=== PATIENT | male | born 1995 | race Caucasian/White ===

== ENCOUNTER 2016-04-27 14:01 | Inpatient (IN) | payer BC, OTHER ==
[~2016-04-27] VITALS: Ht 167.6 cm; Wt 72.0 kg
[2016-04-27] MEDS ORDERED: SODIUM CHLORIDE 0.9% 1000ML 1,000 ML IV STA ×2 (15:34→16:48)
[2016-04-27] MEDS ORDERED: ONDANSETRON INJ 2 MG/ML 2 ML VIAL IV STA (15:34)
[2016-04-27] MEDS ORDERED: SODIUM CHLORIDE 0.9% 1000ML 1,000 ML IV ONE (15:34)
--- NOTE | 2016-04-27 15:37 | EMERGENCY ROOM VISIT NOTE ---
History Report prepared by Serenity: Miah Tripathi Under the Supervision of: Dr. Miah England M.D. First contact with patient: 15:27 Chief Complaint: VOMITING Stated Complaint: VOMITING Nursing Triage Summary: Cyclic vomiting syndrome. Vomiting since sunday night. Keeps small amount of liquids down. Better at night, wakes up and starts all over. Normally waits symptoms out but this is the longest its ever been. History of Present Illness The patient is a 20 year old male who presents to the Emergency Room with complaints of persistent vomiting beginning 4 days ago. He states he has cyclic vomiting syndrome and has had this for 5 years, but indicates this bout of vomiting is the worst he has had. He notes he usually relieves his symptoms with hot showers and drinking liquids, but he has no relief this time. He adds he has tried taking Zofran but with no relief of his symptoms. He has not eaten since the onset of his symptoms, and has had no bowel movements. He notes his esophagus is burning, and adds he may have had blood in his vomit last night. The patient reports his vomiting relieves his pain for 10-15 minutes, and will at time drink Gatorade to induce vomiting for pain relief. He has chest pain that he describes as burning, dark and light urine, and a headache. He does not currently take any medications. Source of History: patient, friend Onset: 5 days ago Position: other (global) Quality: other (vomiting) Timing: other (persistent) Associated Symptoms: + chest pain ("burning"), + headache, + nausea, + urinary symptoms (dark and light urine), No SOB Review of Systems See HPI for pertinent positives & negatives. A total of 10 systems reviewed and were otherwise negative. Past Medical & Surgical Medical Problems: (1) Acute kidney injury (2) boerhaave's syndrome (3) Cyclic vomiting syndrome (4) Cyclic vomiting syndrome (5) Gastroesophageal reflux disease Old medical records were reviewed. Nurse's notes were reviewed and I agree with. History of cyclic vomiting. He did have an episode several years ago in a small pneumomediastinum but normal esophagus at the time. Family History No pertinent family history stated. Social History Smoking Status: Current Some Day Smoker Alcohol Use: other Drug Use: other Marital Status: single Housing Status: other Occupation Status: student, [employer] student Current/Historical Medications Scheduled Ranitidine (Zantac), 150 MG PO DAILY Scheduled PRN Ondansetron Hcl (Zofran), 4 MG PO for Nausea Miscellaneous Medications Calcium Carbonate (Tums), 1-2 TAB PO Allergies Coded Allergies: Aspirin (Verified Allergy, Severe, lips swelling, 04/27/16) per patient Physical Exam Vital Signs Date Time Temp Pulse Resp B/P Pulse Ox O2 Delivery O2 Flow Rate FiO2 04/27/16 18:11 80 113/71 98 Room Air 04/27/16 16:55 90 20 112/90 98 Room Air 04/27/16 16:01 90 18 159/91 96 Room Air 04/27/16 14:03 37.2 104 18 147/91 98 Room Air Physical Exam General: Well developed well nourished in no acute distress, breathing comfortably on room air. Normal speech. Mildly ill-appearing but non-toxic. HEENT: Normal cephalic atraumatic. Pupils are equal round and reactive to light. Extraocular movements are intact. Oropharynx is pink with moist mucous membranes. No swelling of the mouth lips or tongue. Neck: Supple with a midline trachea. No meningeal signs or stiffness, no JVD or bruits. No Stridor. Chest: Clear to auscultation bilaterally. No wheezes or rhonchi. No increased work of breathing. Heart: regular rate and rhythm. Abdomen: Soft nontender, nondistended without rebound guarding or rigidity. Extremities: No cyanosis clubbing or edema. No calf tenderness or assymetry Spine/Back. Non tender to palpation. No CVA tenderness Skin: Good turgor without rashes. Neurologic exam: Cranial nerves two through 12 are intact. Motor and sensation are intact and symmetrical throughout. Medical Decision & Procedures ER Provider Diagnostic Interpretation: X-ray results as stated below per interpretation by me and the radiologist: SINGLE VIEW CHEST FINDINGS: 2 AP, portable, upright chest radiographs are compared to study dated 05/13/2012. The examination is degraded by portable technique and patient rotation. The cardiomediastinal silhouette is unremarkable. The lungs and pleural spaces are clear. No pneumothorax is seen. The bony thorax is grossly intact. IMPRESSION: No active disease in the chest. Electronically signed by: Juan Guy M.D. 04/27/2016 3:53 PM Dictated Date/Time: 04/27/2016 3:53 PM Laboratory Results Test 04/27/16 15:56 Magnesium Level 2.8 mg/dl (1.8-2.4) Total Bilirubin 1.5 mg/dl (0.2-1) Direct Bilirubin 0.2 mg/dl (0-0.2) Aspartate Amino Transf (AST/SGOT) 18 U/L (15-37) Alanine Aminotransferase (ALT/SGPT) 36 U/L (12-78) Alkaline Phosphatase 66 U/L (45-117) Total Protein 10.0 gm/dl (6.4-8.2) Albumin 5.5 gm/dl (3.4-5.0) Lipase 96 U/L (73-393) Laboratory studies as stated above per my review. Medications Administered Medications (Trade) Dose Ordered Sig/Donovan Route Start Time Stop Time Status Last Admin Dose Admin Sodium Chloride 1,000 ml @ 999 mls/hr Q1H1M STAT IV 04/27/16 15:34 04/27/16 16:34 DC 04/27/16 15:58 999 MLS/HR Sodium Chloride (Nss 1000ml) 1,000 ml @ 200 mls/hr Q5H ONCE IV 04/27/16 15:34 04/27/16 20:33 DC 04/27/16 15:59 200 MLS/HR Ondansetron HCl (Zofran Inj) 4 mg NOW STAT IV 04/27/16 15:34 04/27/16 15:37 DC 04/27/16 15:57 4 MG Hyoscyamine Sulfate 0.125 mg 0.125 mg NOW STAT PO 04/27/16 16:48 04/27/16 16:49 DC 04/27/16 16:53 0.125 MG Sodium Chloride (Nss 1000ml) 1,000 ml @ 999 mls/hr Q1H1M STAT IV 04/27/16 16:48 04/27/16 17:48 DC 04/27/16 16:54 999 MLS/HR ED Course 1529: Past medical records reviewed. The patient was evaluated in room C2B, and a complete history and physical examination were performed. 1534: Ordered Zofran Inj 4 mg IV, NSS 1,000 ml @ 200 mls/hr IV, and NSS 1,000 ml @ 999 mls/hr IV. 1648: Ordered NSS 1,000 ml @ 999 mls/hr IV, and Levsin Tab 0.125 mg PO. 1700: I reassessed the patient, they are getting more fluids. 181: I reassessed the patient; they are feeling better. 181: I discussed the patient's case with ANA Nielson. They will further evaluate and manage the patient. 1820: Upon reevaluation, the patient is hemodynamically stable. I discussed the results and treatment plan with the patient. He verbalized agreement of the treatment plan. The patient will be evaluated for further management. Medical Decision Differentials include cyclic vomiting, dehydration, GERD, infection, esophageal abnormality, and electrolyte or metabolic abnormality. This patient comes in as described above he's been vomiting for several days his history cyclic vomiting. IV access was established and he was given 1 IV normal saline bolus and 200 mL an hour of IV normal saline. He was given Zofran 4 mg IV. Chest x-ray multiple blood testing was obtained. He was reassessed frequently. He also did receive sublingual Levsin as he requested this. He received a second normal saline 1 L bolus here as well. His BUN and creatinine are elevated compared to baseline with a creatinine 1.6. His potassium is also low at 2.8. He does not feel that he could tolerate oral potassium. His abdomen remains nontender without peritonitis. He is not anemic. His labs definitely support dehydration. I think that he seems to be doing significantly better but I think hydrated him overnight and given him some potassium in his IV fluids is warranted. I did consult the [facility] hospitalist and they saw him in the ER and will observe him tonight for further hydration. Consults Time Called: 1811 Consulting Physician: Dr. Ghanshyam PEREZ Returned Call: 1815 I discussed the patient's case with ANA Nielson. They will further evaluate and manage the patient. Impression Primary Impression: Dehydration Additional Impressions: Hypokalemia Cyclical vomiting Scribe Attestation The scribe's documentation has been prepared under my direction and personally reviewed by me in its entirety. I confirm that the note above accurately reflects all work, treatment, procedures, and medical decision making performed by me. Departure Information Dispostion Being Evaluated By Hospitalist Referrals No Doctor, Assigned (PCP) Patient Instructions My [facility] Problem Qualifiers
[2016-04-27] MEDS ORDERED: ONDA4TAB46 PO (15:42)
[2016-04-27] MEDS ORDERED: ZNTT/150 PO (15:42)
[2016-04-27] MEDS ORDERED: CALC500C3 PO (15:42)
--- NOTE | 2016-04-27 15:55 | DIAGNOSTIC IMAGING REPORT ---
SINGLE VIEW CHEST CLINICAL HISTORY: Atypical chest pain. FINDINGS: 2 AP, portable, upright chest radiographs are compared to study dated 05/13/2012. The examination is degraded by portable technique and patient rotation. The cardiomediastinal silhouette is unremarkable. The lungs and pleural spaces are clear. No pneumothorax is seen. The bony thorax is grossly intact. IMPRESSION: No active disease in the chest. Electronically signed by: Juan Guy M.D. 04/27/2016 3:53 PM Dictated Date/Time: 04/27/2016 3:53 PM
[2016-04-27 16:02] LABS: COMPLETE YES; EOS % 0.2 %; HEMATOCRIT 44.4 % (42-52); IG% 0.3 %; LYMPH % 13.9 %; LYMPH ABS # 1.57 K/uL (1.2-3.4); MEAN CELL VOLUME 80.3 fL (80-100); MEAN CORPUSCULAR HEMOGLOBIN 30.2 pg (25-34); MEAN CORPUSCULAR HGB CONC 37.6 g/dl (32-36); MEAN PLATELET VOLUME 9.3 fL (7.4-10.4); MONO % 13.2 %; NEUT % 72.4 %; PLATELET COUNT 355 K/uL (130-400); RED BLOOD COUNT 5.53 M/uL (4.7-6.1); WHITE BLOOD COUNT 11.28 K/uL (4.8-10.8)
[2016-04-27 16:23] LABS: BUN/CREATININE RATIO 18.9 (10-20); CALCIUM 10.5 mg/dl (8.5-10.1); CREATININE 1.6 mg/dl (0.60-1.40); POTASSIUM 2.8 mmol/L (3.5-5.1)
[2016-04-27] MEDS ORDERED: HYOSCYAMINE SULFATE 0.125 MG SL TAB PO STA (16:48)
[2016-04-27] MEDS ORDERED: ACETAMINOPHEN 325 MG TAB PO PRN (18:45)
[2016-04-27] MEDS ORDERED: POTASSIUM CHLORIDE 10 MEQ TABCR PO STA ×2 (19:43→19:55)
[2016-04-27 19:45] VITALS: BP 164/92; PULSE 70; TEMP 37.1; O2SAT 99
--- NOTE | 2016-04-27 20:07 | History and Physical ---
History & Physical Date & Time of Service: Apr 27, 2016 at 19:56 Chief Complaint: Vomiting Primary Care Physician: No Doctor, Assigned History of Present Illness Source: patient Pt is a 20 yo male who presents to ER with persistent vomiting x 5 days. Pt denies any fevers or chills, abd pain, urinary sx, diarrhea or sick contacts. Pt has a hx of cyclic vomiting syndrome and has seen GI in the past with multiple EGDs which were unremarkable. Pt states when his episodes have occurred in the past they would usually last for 1 day only. He indicates this bout of vomiting is the worst he has had. He adds he has tried taking Zofran but with no relief of his symptoms. He has not eaten since the onset of his symptoms, and has had no bowel movements. Past Medical/Surgical History Medical Problems: (1) boerhaave's syndrome Status: Chronic (2) Gastroesophageal reflux disease Status: Chronic Social History Smoking Status: Current Some Day Smoker Drug Use: other Marital Status: single Housing status: lives with friends Occupational Status: student, [employer] student Immunizations History of Influenza Vaccine: Unknown History of Tetanus Vaccine?: utd History of Pneumococcal: No History of Hepatitis B Vaccine: Yes Allergies Coded Allergies: Aspirin (Verified Allergy, Severe, lips swelling, 04/27/16) per patient Home Medications Scheduled Ranitidine (Zantac), 150 MG PO DAILY Scheduled PRN Ondansetron Hcl (Zofran), 4 MG PO for Nausea Miscellaneous Medications Calcium Carbonate (Tums), 1-2 TAB PO Review of Systems Constitutional: No chills, No fever Respiratory: No cough, No sputum Abdomen: + nausea, + vomiting Musculoskeletal: No joint pain, No muscle pain Genitourinary - Male: No dysuria, No hematuria, No urinary frequency Neurologic: No paralysis, No weakness Endocrine: No excessive thirst, No fatigue Physical Exam Vital Signs Date Time Temp Pulse Resp B/P Pulse Ox O2 Delivery O2 Flow Rate FiO2 04/27/16 19:38 73 16 120/66 97 Room Air 04/27/16 18:11 80 113/71 98 Room Air 04/27/16 16:55 90 20 112/90 98 Room Air 04/27/16 16:01 90 18 159/91 96 Room Air 04/27/16 14:03 37.2 104 18 147/91 98 Room Air General Appearance: WD/WN, no apparent distress Neck: supple, no adenopathy Respiratory/Chest: chest non-tender, lungs clear, normal breath sounds Cardiovascular: regular rate, rhythm, no edema, no gallop Abdomen/GI: non tender, soft Neurologic/Psych: alert, normal mood/affect, oriented x 3 Diagnostics Laboratory Results Results Past 24 Hours Test 04/27/16 15:56 Range/Units White Blood Count 11.28 4.8-10.8 K/uL Red Blood Count 5.53 4.7-6.1 M/uL Hemoglobin 16.7 14.0-18.0 g/dL Hematocrit 44.4 42-52 % Mean Corpuscular Volume 80.3 80-100 fL Mean Corpuscular Hemoglobin 30.2 25-34 pg Mean Corpuscular Hemoglobin Concent 37.6 32-36 g/dl Platelet Count 355 130-400 K/uL Mean Platelet Volume 9.3 7.4-10.4 fL Neutrophils (%) (Auto) 72.4 % Lymphocytes (%) (Auto) 13.9 % Monocytes (%) (Auto) 13.2 % Eosinophils (%) (Auto) 0.2 % Basophils (%) (Auto) 0.0 % Neutrophils # (Auto) 8.17 1.4-6.5 K/uL Lymphocytes # (Auto) 1.57 1.2-3.4 K/uL Monocytes # (Auto) 1.49 0.11-0.59 K/uL Eosinophils # (Auto) 0.02 0-0.5 K/uL Basophils # (Auto) 0.00 0-0.2 K/uL RDW Standard Deviation 34.7 36.4-46.3 fL RDW Coefficient of Variation 11.8 11.5-14.5 % Immature Granulocyte % (Auto) 0.3 % Immature Granulocyte # (Auto) 0.03 0.00-0.02 K/uL Sodium Level 135 136-145 mmol/L Potassium Level 2.8 3.5-5.1 mmol/L Chloride Level 90 98-107 mmol/L Carbon Dioxide Level 31 21-32 mmol/L Anion Gap 14.0 3-11 mmol/L Blood Urea Nitrogen 30 7-18 mg/dl Creatinine 1.60 0.60-1.40 mg/dl Est Creatinine Clear Calc Drug Dose 65.3 ml/min Estimated GFR () 69.8 Estimated GFR (Non- 60.3 BUN/Creatinine Ratio 18.9 10-20 Random Glucose 125 70-99 mg/dl Calcium Level 10.5 8.5-10.1 mg/dl Total Bilirubin 1.5 0.2-1 mg/dl Direct Bilirubin 0.2 0-0.2 mg/dl Aspartate Amino Transf (AST/SGOT) 18 15-37 U/L Alanine Aminotransferase (ALT/SGPT) 36 12-78 U/L Alkaline Phosphatase 66 45-117 U/L Total Protein 10.0 6.4-8.2 gm/dl Albumin 5.5 3.4-5.0 gm/dl Lipase 96 73-393 U/L Impression Assessment and Plan Pt is a 20 yo male with hx of cyclic vomiting disorder who presents with intractable N/V x 5 days Intractable N/V likely secondary to cyclic vomiting disorder. Pt states some relief at this time and reports his sx are more subdued in ER. Cont IVF and zofran at this time. No need for CT abd/pelvis or GI consultation unless worsening sx. Hypokalemia likely secondary to N/V. Replace PRN NAWAF likely secondary to N/V. Cr 1.6 upon admission. Cont IVF GERD cont protonix VTE Prophylaxis VTE Risk Assessment Done? Y/N: Yes Risk Level: Moderate
[2016-04-27] MEDS ORDERED: IV FLUIDS COMPLETED PRN (21:00)
[2016-04-27] MEDS: SODIUM CHLORIDE 0.9% 1000ML 1,000 ML IV SCH (21:06)
[2016-04-27] MEDS: POTASSIUM CHLR 10 MEQ / WTR 10 MEQ in PREMIXED WATER 100 ML IV SCH (21:07)
[2016-04-27 21:41] VITALS: Ht 167.6 cm; Wt 72.0 kg
[2016-04-27 22:28] LABS: URINE APPEARANCE CLEAR (CLEAR); URINE BILIRUBIN NEG (NEG); URINE COLOR YELLOW; URINE NITRITE NEG (NEG); URINE PH 7.5 (4.5-7.5); URINE SPECIFIC GRAVITY 1.028 (1.000-1.030); UROBILINOGEN NEG (NEG)
[2016-04-27 22:41] LABS: MANUAL MICROSCOPIC REQUIRED? NO; REVIEW REQ? YES; SULFASALICYLIC ACID NEG (NEG)
[2016-04-27 22:43] LABS: URINE MUCUS PRESENT (NONE PRSENT)
[2016-04-27 22:50] LABS: URINE EPITHELIAL CELL AUTO 0-5 /lpf (0-5)
[2016-04-27 22:53] VITALS: BP 113/67; PULSE 57; TEMP 37.6; O2SAT 99
[2016-04-28] MEDS: ONDANSETRON INJ 2 MG/ML 2 ML VIAL IV PRN ×2 (00:32→06:41)
[2016-04-28] MEDS: POTASSIUM CHLR 10 MEQ / WTR 10 MEQ in PREMIXED WATER 100 ML IV SCH ×3 (00:32→03:00)
[2016-04-28] MEDS ORDERED: CALCIUM CARBONATE 500 MG CHEWABLE PO PRN (01:30)
[2016-04-28 02:35] VITALS: O2SAT 99
[2016-04-28 06:20] LABS: BASO % 0.1 %; BASO ABS # 0.01 K/uL (0-0.2); COMPLETE YES; EOS % 0.9 %; HEMATOCRIT 35.4 % (42-52); IG% 0.1 %; LYMPH % 37.6 %; LYMPH ABS # 3.53 K/uL (1.2-3.4); MEAN CELL VOLUME 84.7 fL (80-100); MEAN CORPUSCULAR HEMOGLOBIN 29.4 pg (25-34); MEAN CORPUSCULAR HGB CONC 34.7 g/dl (32-36); MEAN PLATELET VOLUME 9.4 fL (7.4-10.4); MONO % 13.2 %; NEUT % 48.1 %; PLATELET COUNT 232 K/uL (130-400); RED BLOOD COUNT 4.18 M/uL (4.7-6.1); WHITE BLOOD COUNT 9.39 K/uL (4.8-10.8)
[2016-04-28 06:26] LABS: BUN/CREATININE RATIO 15.5 (10-20); CALCIUM 8.5 mg/dl (8.5-10.1); CREATININE 1.1 mg/dl (0.60-1.40); POTASSIUM 3.1 mmol/L (3.5-5.1)
[2016-04-28] MEDS: SODIUM CHLORIDE 0.9% 1000ML 1,000 ML IV SCH ×3 (06:41→19:22)
[2016-04-28 07:56] VITALS: BP 146/92; PULSE 59; TEMP 37.2; O2SAT 99
[2016-04-28] MEDS ORDERED: POTASSIUM CHLORIDE 20 MEQ/15 ML UDC PO STA (09:19)
[2016-04-28] MEDS ORDERED: PROMETHAZINE HCL INJ 12.5 MG in SODIUM CHLORIDE 0.9% 50ML 50 ML IV STA (09:31)
[2016-04-28] MEDS ORDERED: NURSING VERBAL MED ORDER ONE (10:15)
[2016-04-28] MEDS: HYOSCYAMINE SULFATE 0.125 MG SL TAB PO PRN (10:15)
[2016-04-28] MEDS ORDERED: PANTOprazole INJ 40 MG in SYRINGE 0 ML IV ONE (10:30)
[2016-04-28] MEDS: POTASSIUM CHLR 10MEQ / WTR IV SCH ×4 (11:04→14:00)
[2016-04-28 14:06] LABS: BUN/CREATININE RATIO 12.5 (10-20); CALCIUM 8.2 mg/dl (8.5-10.1); CREATININE 1.1 mg/dl (0.60-1.40); POTASSIUM 3.6 mmol/L (3.5-5.1)
--- NOTE | 2016-04-28 14:27 | Family Medicine Progress Note ---
Progress Note Date of Service Apr 28, 2016. Subjective Pt evaluation today including: conversation w/ patient, physical exam, chart review, lab review Pain: No pain PO Intake: Still unable to eat at this time Voiding: no voiding problems, no incontinence Patient notes nausea persists but is better States that he somehow finds hot showers very helpful in alleviating the nausea Notes that he smokes at least 2 "joints" of marijuana and has been doing this for many yearss Denies any other drug use Suspects that Marijuana may have something to do with the episodic nausea Notes he is having more persistent nausea this time. Episodes typically last 1 day and improve, this has bedn going on for 5 days Also notes an episodes of vomting purplish/blood streaked content 2 days ago. Currently denying abdominal pain but feels heartburn. Additional Comments: Review of systems otherwise negative. Medications Current Inpatient Medications Medications (Trade) Dose Ordered Sig/Donovan Route Start Time Stop Time Status Last Admin Dose Admin Acetaminophen (Tylenol Tab) 650 mg Q4H PRN PO 04/27/16 18:45 05/27/16 18:44 Ondansetron HCl 4 mg 4 mg Q6H PRN IV 04/27/16 18:45 05/27/16 18:44 04/28/16 06:41 4 MG Sodium Chloride (Nss 1000ml) 1,000 ml @ 125 mls/hr Q8H IV 04/27/16 18:45 05/27/16 18:44 04/28/16 06:41 125 MLS/HR Miscellaneous (Iv Fluids Completed) 1 ea PRN PRN N/A 04/27/16 21:00 04/27/17 20:59 Calcium Carbonate (Tums Chew Tab) 1,500 mg PRN PRN PO 04/28/16 01:30 05/28/16 01:29 Hyoscyamine Sulfate 0.125 mg 0.125 mg Q4H PRN PO 04/28/16 09:30 05/28/16 09:29 04/28/16 10:15 0.125 MG Potassium Chloride/Prmx (Kcl 10 Meq / Wtr/Premixed Water) 100 ml @ 100 mls/hr Q1H IV 04/28/16 11:00 04/28/16 14:59 04/28/16 13:40 100 MLS/HR Objective Vital Signs Date Time Temp Pulse Resp B/P Pulse Ox O2 Delivery O2 Flow Rate FiO2 04/28/16 08:00 Room Air 04/28/16 07:56 37.2 59 18 146/92 99 Room Air 04/28/16 02:35 99 Room Air 04/27/16 22:53 37.6 57 18 113/67 99 Room Air 04/27/16 21:41 Room Air 04/27/16 19:45 37.1 70 18 164/92 99 Room Air 04/27/16 19:38 73 16 120/66 97 Room Air 04/27/16 18:11 80 113/71 98 Room Air 04/27/16 16:55 90 20 112/90 98 Room Air 04/27/16 16:01 90 18 159/91 96 Room Air Physical Exam General Appearance: WD/WN, + mild distress Eyes: normal inspection, EOMI ENT: hearing grossly normal, pharynx normal Neck: supple, no adenopathy, no JVD Respiratory/Chest: lungs clear, no respiratory distress Cardiovascular: regular rate, rhythm, no gallop, no murmur Abdomen: normal bowel sounds, non tender, soft Extremities: non-tender, no pedal edema Neurologic/Psychiatric: alert, normal mood/affect, oriented x 3 Skin: normal color, warm/dry, no rash Lymphatic: no adenopathy Laboratory Results Last 24 Hours Test 04/27/16 15:56 04/27/16 21:40 04/28/16 05:22 04/28/16 13:16 White Blood Count 11.28 K/uL 9.39 K/uL Red Blood Count 5.53 M/uL 4.18 M/uL Hemoglobin 16.7 g/dL 12.3 g/dL Hematocrit 44.4 % 35.4 % Mean Corpuscular Volume 80.3 fL 84.7 fL Mean Corpuscular Hemoglobin 30.2 pg 29.4 pg Mean Corpuscular Hemoglobin Concent 37.6 g/dl 34.7 g/dl Platelet Count 355 K/uL 232 K/uL Mean Platelet Volume 9.3 fL 9.4 fL Neutrophils (%) (Auto) 72.4 % 48.1 % Lymphocytes (%) (Auto) 13.9 % 37.6 % Monocytes (%) (Auto) 13.2 % 13.2 % Eosinophils (%) (Auto) 0.2 % 0.9 % Basophils (%) (Auto) 0.0 % 0.1 % Neutrophils # (Auto) 8.17 K/uL 4.52 K/uL Lymphocytes # (Auto) 1.57 K/uL 3.53 K/uL Monocytes # (Auto) 1.49 K/uL 1.24 K/uL Eosinophils # (Auto) 0.02 K/uL 0.08 K/uL Basophils # (Auto) 0.00 K/uL 0.01 K/uL RDW Standard Deviation 34.7 fL 38.0 fL RDW Coefficient of Variation 11.8 % 12.3 % Immature Granulocyte % (Auto) 0.3 % 0.1 % Immature Granulocyte # (Auto) 0.03 K/uL 0.01 K/uL Sodium Level 135 mmol/L 140 mmol/L 139 mmol/L Potassium Level 2.8 mmol/L 3.1 mmol/L 3.6 mmol/L Chloride Level 90 mmol/L 101 mmol/L 102 mmol/L Carbon Dioxide Level 31 mmol/L 29 mmol/L 30 mmol/L Anion Gap 14.0 mmol/L 10.0 mmol/L 7.0 mmol/L Blood Urea Nitrogen 30 mg/dl 17 mg/dl 14 mg/dl Creatinine 1.60 mg/dl 1.10 mg/dl 1.10 mg/dl Est Creatinine Clear Calc Drug Dose 65.3 ml/min 95.0 ml/min 95.0 ml/min Estimated GFR () 69.8 109.9 109.9 Estimated GFR (Non- 60.3 94.8 94.8 BUN/Creatinine Ratio 18.9 15.5 12.5 Random Glucose 125 mg/dl 90 mg/dl 93 mg/dl Calcium Level 10.5 mg/dl 8.5 mg/dl 8.2 mg/dl Magnesium Level 2.8 mg/dl Total Bilirubin 1.5 mg/dl Direct Bilirubin 0.2 mg/dl Aspartate Amino Transf (AST/SGOT) 18 U/L Alanine Aminotransferase (ALT/SGPT) 36 U/L Alkaline Phosphatase 66 U/L Total Protein 10.0 gm/dl Albumin 5.5 gm/dl Lipase 96 U/L Urine Color YELLOW Urine Appearance CLEAR Urine pH 7.5 [address] Specific [employer] 1.028 Urine Protein NEG Urine Glucose (UA) NEG Urine Ketones TRACE Urine Occult Blood NEG Urine Nitrite NEG Urine Bilirubin NEG Urine Urobilinogen NEG Urine Leukocyte Esterase NEG Urine WBC (Auto) 1-5 /hpf Urine RBC (Auto) 0-4 /hpf Urine Hyaline Casts (Auto) 1-5 /lpf Urine Epithelial Cells (Auto) 0-5 /lpf Urine Bacteria (Auto) NEG Urine Renal Epithelial Cells /lpf Urine Mucus PRESENT Assessment and Plan 20 year old patient with history of cyclic vomiting. Patient notes to be a history of chronic marijana consumption. As such cause may also on the spectrum of Cannabinoid abdomen/Cannabinoid hyperemesis. History in the EMR also notes history of Booerhave's in 2011. Patient notes today that symptoms are more persistent than usual and notes a history of vomiting small amount of blood 2 days ago. Our plan for him is as follows: Cyclic Vomiting Syndrome - Continues to have nausea though much improved. Mild relieft with Zofran; have added in Phenergan and hyoscyamine - Suspicious for cannabinoid abdomen Recommend strict cessation for cannabis and any other narcotics Cannabinoid Abdomen/Cannabinoid Hyperemesis Syndrome - Discussed cessation of cannabis Concern for Booerhave's Syndrome - Patient notes episode of hematemesis 2 days ago - No fevers or leukocytosis; patient will at risk of pneumomediastinum if Boorhave's present - Previous history of Boerhaave's - Will order CT chest with oral contrast - GI consulted; discussed case with attending Acute Kidney Injury - Like secondary to intractable nausea and poor PO intake - Patient has received fluid rehydration IV - Cr 1.1; improved from 1.6 on admission Hypokalemia - K 2.8 on arrival; like secondary to vomiting - 30 mEq IV administered --> K improved to 3.6 today - Continue daily monitoring Disposition - Med/Surg Continued [facility] stay due to: other (persistence of nausea.) Discharge planning: home Reviewed: Pt Seen/Exam by Me History having lots of abdominal cramp Constitutional: denies: fever Respiratory: negative: short of breath Cardiovascular: denies chest pain Gastrointestinal/Abdominal: positive: abdominal pain, nausea General Appearance: moderate distress Respiratory: lungs clear, no respiratory distress Cardiovascular: regular rate, rhythm Gastrointestinal: normal bowel sounds, soft, tenderness (diffuse) Neurologic/Psychiatric: alert, oriented x 3 Skin Characteristics: warm/dry Assessment/Plan I have reviewed the medical record and performed a history and physical examination of this patient today. I have discussed the case with Dr. Ruff. The above note reflects my findings, conclusions, and recommendations.
[2016-04-28 15:12] VITALS: BP 112/66; PULSE 64; TEMP 36.9; O2SAT 100
[2016-04-28 15:45] VITALS: O2SAT 100
--- NOTE | 2016-04-28 15:52 | GASTROINTESTINAL CONSULTATION ---
DATE OF CONSULTATION: 04/28/2016 DATE OF CONSULTATION: 04/28/2016. REASON FOR EVALUATION: Recurrent vomiting. 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 The patient has been hospitalized a couple of times in the past for similar symptoms, usually it will last only a day. It has been attributed to cannabis hyperemesis in the past. The patient continues to smoke a couple of joints of marijuana daily. Four or 5 years ago the patient was hospitalized with recurrent vomiting and developed Boerhaave syndrome, esophageal perforation was very small and self-contained and did not require surgery or transfer and it healed spontaneously on its own. The patient has been vomiting for a few days and has been having a little bit of chest discomfort and is concerned that there may be recurrent Boerhaave. He does not have any abnormalities on his chest x-ray however, his white count is normal. He did vomit a little bit of blood couple of days ago and is a little bit dehydrated. PAST MEDICAL HISTORY: Remarkable for gastroesophageal reflux and Boerhaave syndrome. MEDICATIONS: Zantac 150 mg a day, Zofran as needed. ALLERGIES: ASPIRIN. SOCIAL HISTORY: The patient is a [employer] student, lives with friends in an apartment, smokes marijuana daily for several years. FAMILY HISTORY: Noncontributory. REVIEW OF SYSTEMS: Positive for fatigue. PHYSICAL EXAMINATION: GENERAL: The patient appears in no acute distress. VITAL SIGNS: Normal. He is afebrile. LUNGS: Clear. HEART: In a normal S1 and S2 with regular rate and rhythm without murmurs, rubs, or gallops. ABDOMEN: Soft, nontender. There no masses or hepatosplenomegaly. IMPRESSION: The patient has what appears to be cannabis hyperemesis. I had a discussion with the patient about weaning off cannabis as it is likely to recur in the future if he continues to smoke. He seems to be agreeable to doing so given his current situation. I plan on getting a chest CT to rule out Boerhaave although it is highly unlikely at this point. At this juncture, we will be rehydrating him and supporting him with antiemetics in a dark room and quiet noise level and hopefully he will recover quickly. JOSE RAFAEL
--- NOTE | 2016-04-28 16:01 | DIAGNOSTIC IMAGING REPORT ---
CHEST CT WITHOUT CONTRAST CT DOSE: 256.09 mGy.cm HISTORY: Hyper emesis. Hematemesis. please administer oral contrast TECHNIQUE: Multiaxial CT images of the chest were performed without contrast. COMPARISON: Chest CT 10/17/2011. FINDINGS: Small amount pneumomediastinum which extends into the neck base. This is seen primarily anterior to the esophagus. There is a contrast-filled esophagus. No extraluminal contrast to suggest esophageal perforation at this time. There is mild diffuse thickening of the esophageal wall. There is no mediastinal fluid. No pleural or pericardial effusions. The heart is normal in size. Soft tissue density within the anterior mediastinum favors residual thymic tissue given the patient's age. Majority of the pneumomediastinum surrounds the trachea. The central airways are patent. Small amount of gas dissecting into the bilateral hilar regions. No pneumothorax. The lungs are clear. No acute fractures within the visualized osseous structures. The visualized liver, spleen, adrenal glands, and kidneys are unremarkable. IMPRESSION: 1. Small amount of pneumomediastinum of unclear etiology. 2. There is contrast within the esophagus. The esophageal wall is mildly thickened. There is no extraluminal contrast to suggest a perforation. Electronically signed by: Demetri Mart M.D. 04/28/2016 3:59 PM Dictated Date/Time: 04/28/2016 3:52 PM
[2016-04-28 19:59] LABS: BENZODIAZEPINE, URINE NEG (NEG); COCAINE,URINE NEG (NEG); PHENCYCLIDINE, URINE NEG (NEG)
[2016-04-28] MEDS: PANTOprazole INJ 40 MG in SYRINGE 0 ML IV SCH (21:01)
[2016-04-28 23:50] VITALS: BP 121/62; PULSE 70; TEMP 37.2; O2SAT 98
[2016-04-29] VITALS: O2SAT 98
[2016-04-29] MEDS: SODIUM CHLORIDE 0.9% 1000ML 1,000 ML IV SCH ×2 (02:45→10:45)
[2016-04-29 07:17] LABS: BASO % 0.2 %; BASO ABS # 0.02 K/uL (0-0.2); COMPLETE YES; EOS % 1.2 %; HEMATOCRIT 39.1 % (42-52); IG% 0.3 %; LYMPH % 46.4 %; LYMPH ABS # 4.01 K/uL (1.2-3.4); MEAN CELL VOLUME 85.4 fL (80-100); MEAN CORPUSCULAR HEMOGLOBIN 29.7 pg (25-34); MEAN CORPUSCULAR HGB CONC 34.8 g/dl (32-36); MEAN PLATELET VOLUME 9.4 fL (7.4-10.4); MONO % 7.6 %; NEUT % 44.3 %; PLATELET COUNT 245 K/uL (130-400); RED BLOOD COUNT 4.58 M/uL (4.7-6.1); WHITE BLOOD COUNT 8.65 K/uL (4.8-10.8)
[2016-04-29 07:30] VITALS: BP 113/70; PULSE 59; TEMP 36.8; O2SAT 100
[2016-04-29 08:01] LABS: BUN/CREATININE RATIO 9.2 (10-20); CALCIUM 8.4 mg/dl (8.5-10.1); POTASSIUM 3.3 mmol/L (3.5-5.1)
[2016-04-29] MEDS: PANTOprazole INJ 40 MG in SYRINGE 0 ML IV SCH (09:04)
[2016-04-29] MEDS ORDERED: LVS125 PO (09:11)
--- NOTE | 2016-04-29 09:12 | Discharge Instructions ---
Discharge Instructions Admission Reason for Admission: Cyclic Vomiting Syndrome Discharge Discharge Diagnosis / Problem: Cyclic Vomiting Syndrome Discharge Goals Goal(s): Improve disease control Activity Recommendations Activity Limitations: resume your previous activity Follow up with family physician in one week . Current Hospital Diet Patient's current hospital diet: Regular Diet Discharge Diet Recommended Diet: Regular Diet Pending Studies Studies pending at discharge: no Medical Emergencies . Who to Call and When: Medical Emergencies: If at any time you feel your situation is an emergency, please call 911 immediately. . Non-Emergent Contact Non-Emergency issues call your: Primary Care Provider . . "Provider Documentation" section prepared by Sarita Dunaway. VTE Core Measure Inpt VTE Proph given/why not?: Treatment not indicated
[2016-04-29 09:36] VITALS: BP 113/70; PULSE 59; TEMP 36.8; O2SAT 100
--- NOTE | 2016-04-29 09:43 | Discharge Summary ---
Discharge Summary Admission Date: Apr 28, 2016 at 09:05 Discharge Date: Apr 29, 2016 Discharge Disposition: Home Principal Diagnosis: Cyclic vomiting syndrome Immunizations: Have You Had Influenza Vaccine: Unknown History of Tetanus Vaccine?: utd History of Pneumococcal: No History of Hepatitis B Vaccine: Yes Consultations: GI- Dr. Caro Medication Reconciliation New Medications: Hyoscyamine Sulfate (Hyoscyamine Sulfate) 0.125 Mg Tab 1 TAB PO TID PRN for bowel spasm for 5 Days, #15 TAB Continued Medications: Calcium Carbonate (Tums) 500 Mg Chew 1-2 TAB PO Ondansetron Hcl (Zofran) 4 Mg Tab 4 MG PO PRN for Nausea, TAB Ranitidine (Zantac) 150 Mg Tab 150 MG PO DAILY, TAB Discharge Exam Last 24 Hours Test 04/28/16 13:16 04/28/16 19:27 04/29/16 06:55 Sodium Level 139 mmol/L 142 mmol/L Potassium Level 3.6 mmol/L 3.3 mmol/L Chloride Level 102 mmol/L 104 mmol/L Carbon Dioxide Level 30 mmol/L 29 mmol/L Anion Gap 7.0 mmol/L 9.0 mmol/L Blood Urea Nitrogen 14 mg/dl 9 mg/dl Creatinine 1.10 mg/dl 1.00 mg/dl Est Creatinine Clear Calc Drug Dose 95.0 ml/min 104.5 ml/min Estimated GFR () 109.9 123.3 Estimated GFR (Non- 94.8 106.4 BUN/Creatinine Ratio 12.5 9.2 Random Glucose 93 mg/dl 94 mg/dl Calcium Level 8.2 mg/dl 8.4 mg/dl Urine Opiates Screen NEG Urine Methadone, Qualitative NEG Urine Barbiturates NEG Urine Phencyclidine (PCP) Level NEG Ur Amphetamine/Methamphetamine NEG MDMA (Ecstasy) Screen NEG Urine Benzodiazepines Screen NEG Urine Cocaine Metabolite NEG Urine Marijuana (THC) POS White Blood Count 8.65 K/uL Red Blood Count 4.58 M/uL Hemoglobin 13.6 g/dL Hematocrit 39.1 % Mean Corpuscular Volume 85.4 fL Mean Corpuscular Hemoglobin 29.7 pg Mean Corpuscular Hemoglobin Concent 34.8 g/dl Platelet Count 245 K/uL Mean Platelet Volume 9.4 fL Neutrophils (%) (Auto) 44.3 % Lymphocytes (%) (Auto) 46.4 % Monocytes (%) (Auto) 7.6 % Eosinophils (%) (Auto) 1.2 % Basophils (%) (Auto) 0.2 % Neutrophils # (Auto) 3.83 K/uL Lymphocytes # (Auto) 4.01 K/uL Monocytes # (Auto) 0.66 K/uL Eosinophils # (Auto) 0.10 K/uL Basophils # (Auto) 0.02 K/uL RDW Standard Deviation 37.8 fL RDW Coefficient of Variation 12.1 % Immature Granulocyte % (Auto) 0.3 % Immature Granulocyte # (Auto) 0.03 K/uL Review of Systems: Constitutional: No fever ENT: No sore throat Respiratory: No shortness of breath Cardiovascular: No chest pain Abdomen: No nausea, No pain, No vomiting Physical Exam: General Appearance: no apparent distress Respiratory/Chest: lungs clear, no respiratory distress Cardiovascular: regular rate, rhythm Abdomen / GI: normal bowel sounds, non tender, soft Neurologic/Psychiatric: alert, oriented x 3 Hospital Course HPI --- 20 yo male who presented to ER with persistent vomiting x 5 days. Pt denies any fevers or chills, abd pain, urinary sx, diarrhea or sick contacts. Pt has a hx of cyclic vomiting syndrome and has seen GI in the past with multiple EGDs which were unremarkable. Pt states when his episodes have occurred in the past they would usually last for 1 day only. He indicates this bout of vomiting is the worst he has had. He adds he has tried taking Zofran but with no relief of his symptoms. He has not eaten since the onset of his symptoms, and has had no bowel movements. Cyclic Vomiting Syndrome - Received antiemetics and antispasmodics. 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 - GI consulted. Agreed with management. Acute Kidney Injury - Like secondary to intractable nausea and poor PO intake - Received fluid rehydration IV - Cr 1.1; improved from 1.6 on admission Total Time Spent: Greater than 30 minutes (35) This includes examination of the patient, discharge planning, medication reconciliation, and communication with other providers. Discharge Instructions Please refer to the electronic Patient Visit Report (Discharge Instructions) for additional information.
[2016-04-29] MEDS: HYOSCYAMINE SULFATE 0.125 MG SL TAB PO PRN (10:18)
--- NOTE | 2016-04-29 12:33 | PROGRESS NOTE ---
DATE: 04/29/2016 DATE: 04/29/2016. SUBJECTIVE: The patient has not had any vomiting today and has taken in 870 mL of fluid orally. His CT of the chest did show small amount of residual air in the pneumo in the mediastinum, but there is no compromise to the integrity of the esophagus and no leak. I think the air in the mediastinum may be left over here from previous Boerhaave syndrome a few years ago. IMPRESSION: The patient has hyperemesis possibly from cannabis use. His seems to be improving as dehydration has resolved and he should be able to be discharged. He was strongly advised to avoid smoking or using cannabis in the future.
== END 2016-04-29 13:41 | disposition home or self-care (01) | DRG 103 ==
LOC: ENRESERVTM → ENRESERVDT → C.EDB 14:02 → C.MS2W 18:38 → OBSVTOIN 04-28 09:05
PROVIDERS: ADMIT Hospitalist; ATTEND Family Medicine
DX: G43.A0 Cyclical vomiting, in migraine, not intractable (principal); N17.9 Acute kidney failure, unspecified; F12.188 Cannabis abuse with other cannabis-induced disorder; E86.0 Dehydration; K21.9 Gastro-esophageal reflux disease without esophagitis; E87.6 Hypokalemia; F17.200 Nicotine dependence, unspecified, uncomplicated; Z79.82 Long term (current) use of aspirin

== ENCOUNTER 2018-11-28 10:54 | Observation (INO) ==
[2018-11-28] MEDS ORDERED: ONDANSETRON INJ 2 MG/ML 2 ML VIAL IV STA (11:36)
[2018-11-28] MEDS ORDERED: PROMETHAZINE HCL 12.5 MG in SODIUM CHLORIDE 0.9% 50 ML IV STA (11:37)
[2018-11-28] MEDS ORDERED: CAPSAICIN CR 0.075% 60 GM TUBE EXT STA (11:37)
[2018-11-28] MEDS: SODIUM CHLORIDE 0.9% 1000ML 1,000 ML IV SCH ×2 (11:43→12:40)
[2018-11-28] MEDS ORDERED: PROMETHAZINE HCL INJ 25 MG/ML 1 ML VIAL ONE (11:47)
[2018-11-28 11:52] LABS: Basophils # (auto) 0.02 K/uL (0-0.2); Basophils % (auto) 0.2 %; Eosinophils # (auto) 0.02 K/uL (0-0.5); Eosinophils % (auto) 0.2 %; Hematocrit (blood only) 41.4 % (42-52); Hemoglobin 15.3 g/dL (14.0-18.0); Immature Granulocytes # (auto) 0.03 K/uL (0.00-0.02); Immature Granulocytes % (auto) 0.4 %; Lymphocytes # (auto) 1.74 K/uL (1.2-3.4); Lymphocytes % (auto) 20.4 %; Mean Corpuscular Volume 81.3 fL (80-100); Monocytes # (auto) 0.76 K/uL (0.11-0.59); Monocytes % (auto) 8.9 %; Neutrophils # (auto) 5.98 K/uL (1.4-6.5); Neutrophils % (auto) 69.9 %; Platelet Count 283 K/uL (130-400); RDW Coefficient of Variation 11.9 % (11.5-14.5); RDW Standard Deviation 35.2 fL (36.4-46.3); Red Blood Count 5.09 M/uL (4.7-6.1); White Blood Count 8.55 K/uL (4.8-10.8)
[2018-11-28 12:27] LABS: Albumin Globulin Ratio 1.3 (0.9-2); Albumin Level 4.9 gm/dl (3.4-5.0); BUN Creatinine Ratio 8.5 (10-20); Bilirubin,Total 0.8 mg/dl (0.2-1); Calcium 10.1 mg/dl (8.5-10.1); Creatinine Clr Calc Pharmacy 77.2 ml/min; Est GFR (African American) 86.3; Est GFR (Non-African American) 74.5; Globulin 3.8 gm/dl (2.5-4.0); Potassium 2.8 mmol/L (3.5-5.1); Total Protein 8.7 gm/dl (6.4-8.2)
[2018-11-28] MEDS ORDERED: POTASSIUM CHLORIDE 20 MEQ TABCR PO STA (13:40)
[2018-11-28] MEDS ORDERED: POTASSIUM CHLORIDE / WTR 10 MEQ/100 ML PLCT IV ONE (13:40)
[2018-11-28] MEDS ORDERED: LACTATED RINGER'S 1,000 ML IV ONE (13:40)
[2018-11-28 14:23] LABS: Appearance Urine Cloudy (Clear); Bacteria Urine Automated Negative (Negative); Bilirubin Urine Negative (Negative); Blood Urine Negative (Negative); Cast Urine Automated 0 /lpf (0-5); Color Urine Yellow; Epithelial Cell Urine Auto 0-5 /lpf (0-5); Glucose Urine UA Negative (Negative); Ketones Urine 1+ (Negative); Leukocyte Esterase Urine Negative (Negative); Nitrite Urine Negative (Negative); Protein Urine Negative (Negative); RBC Urine Automated 0-4 /hpf (0-4); Specific Gravity Urine 1.008 (1.000-1.030); Urobilinogen Urine Negative (Negative); WBC Urine Automated 0 /hpf (0-5); pH Urine >= 9.0 (4.5-7.5)
--- NOTE | 2018-11-28 15:33 | History & Physical Report ---
Date of Service November 28, 2018 Assessment & Plan (1) Cyclical vomiting: This is a 23-year-old male with reported long-standing history of cyclical vomiting syndrome. Patient states was not fully him a lifestyle diet and vitamins which it helped with his symptoms. However since moving back to [place] patient has not been as strict with these lifestyle changes. He does state that he has not smoked any marijuana. We will admit patient for observation to the [facility] telemetry unit. Will rehydrate him with 125 normal saline with 20 mEq of potassium. Patient be given IV Zofran 4 mg every 6 hours. Patient will get Phenergan 12.5 mg IV every 6 hours as needed breakthrough vomiting. We will check a stat magnesium. Present on Admission?: Yes (2) Acute hypokalemia: Potassium is 2.8. We will check a stat magnesium. We will replace with normal saline 125 cc an hour with 20 mEq of potassium. Patient will be on telemetry. We will check potassium in the morning. Present on Admission?: Yes (3) Acute kidney injury: Patient's creatinine is 1.32. Review of his old records show that his plan is 0.9-1. This is likely due to significant dehydration due to his cyclical vomiting syndrome. We will continue to replenish fluids and treat symptomatically. Present on Admission?: Yes (4) Elevated lipase: Lipase is 513. Yesterday was 470 and back in October 2018 was 74. Patient had no pain in his abdomen on examination with deep palpation, percussion or auscultation. Elevated lipase likely due to severe dehydration and repeat recurrent vomiting. Will recheck lipase in the a.m. If continues to rise we will consider a CT of the abdomen to rule out pancreatitis. Present on Admission?: Yes History of Present Illness Chief Complaint: cyclical vomiting syndrome Primary Care Provider: NO PCP This is a 23-year-old male with a history of cyclical vomiting syndrome who presents emergency department for evaluation with 9 days of nonstop vomiting. Patient is stating the only thing that helps him get through this is IV fluids and IV Zofran. Patient was seen in the ER yesterday with a prescription for Zofran ODT which he refused to take. Patient was last seen for same complaints in October 2018. Prior to that patient states he had been doing well for several years. Patient states he was diagnosed with cyclical vomiting syndrome 7 years ago. He states he has been to [facility] in [facility] he reports he has had numerous scopes, MRIs and CAT scans which have all been inconclusive. Patient states that he takes hyoscyamine, Zofran and Zantac as needed. He states in the past he has been on numerous PPIs with no success. Patient denies any recent recreational marijuana use and denies any alcohol use. States that the last time he vomited was on arrival to the ER.Patient is currently resting quietly in bed with the lights off receiving IV fluids and IV with girlfriend at his bedside. Allergies Allergy/AdvReac Type Severity Reaction Status Date / Time aspirin Allergy Severe lips Verified 11/28/18 12:27 swelling Home Medications Home Medications Medication Instructions Recorded Confirmed Type hyoscyamine sulfate 0.125 mg PO QID PRN 10/17/18 11/28/18 History ranitidine HCl 150 mg PO QAM PRN 10/17/18 11/28/18 History calcium carbonate [Tums] 400 mg PO BID PRN 11/26/18 11/28/18 History ondansetron 4 mg PO Q8H PRN #30 tab 11/26/18 11/28/18 Rx Past Med/Surg History Medical History Acute kidney injury Cyclic vomiting syndrome (Acute) Hypokalemia Surgical History S/P T&A (status post tonsillectomy and adenoidectomy) Family History Brother Diabetes Social History Preferred Language: Swazi Communication Ability: Effective Visual Impairment: No Limitations Hearing Ability: Normal Beliefs That Will Affect Care: None marital status: Single Current Living Situation: Significant Other Current Living Situation Comment: [place] [address], 3 Roommates current occupational status: employed Other Information That Helps Us Care for You: No Feels Safe at Home: Yes Smoking Status: Light tobacco smoker Hx Alcohol Use: Yes Alcohol type: beer Hx Substance Use: No Review of Systems Constitutional: + fatigue and + anorexia Eyes: no blind spots and no diplopia Ear, Nose, Mouth, Throat: no ear pain and no ear trauma Respiratory: no dyspnea and no dyspnea on exertion Cardiovascular: no dyspnea at rest, no dyspnea on exertion and no orthopnea Gastrointestinal: + vomiting Genitourinary: no dysuria, no urinary frequency and no urinary hesitancy Musculoskeletal: no back pain and no radicular pain Integumentary: no rash Neurologic: no gait abnormality and no falls Psychiatric: no depression Endocrine: no polydipsia, no polyphagia and no polyuria Hematologic / Lymphatic: no easy bleeding and no coagulopathy Physical Exam Constitutional: WD/WN, vitals as above + ill appearing Eyes: PERRL, conjunctivae normal, anicteric sclerae ENMT: Mouth: + dry oral mucous membranes Neck: trachea midline, no thyromegaly Respiratory: normal respiratory effort, lungs clear to auscultation Cardiovascular: RRR, no murmur, no edema Gastrointestinal (Abdomen): normal bowel sounds, soft, nontender, no hepatosplenomegaly Musculoskeletal: no cyanosis or clubbing, extremities motor strength 5/5 Skin: + abnormal turgor (decreased turgor) Neurologic: patellar DTR's 2+ bilat, sensation intact Psychiatric: A+Ox3, euthymic affect Results & Data Vital Signs (Past 12 Hours) Vital Signs Temp Pulse Pulse Resp BP BP Pulse Ox 11/28/18 15:04 80 20 143/84 H 98 11/28/18 13:30 88 18 98 11/28/18 12:30 88 20 98 11/28/18 11:00 37 C 70 16 158/114 H 100 Code Status & VTE Plan Code Status Full code VTE Prophylaxis Plan VTE Prophylaxis will be ordered: No Reason for no VTE drug order: Treatment not indicated Reason for no VTE mechanical prophylaxis: Treatment not indicated Supervising Physician Co-Signing Physician Notes Attending Attestation and Admission Note: Pt seen/examined, chart reviewed, care plan d/w Dr Urbano Johnson. I agree w/ the boyd components of his admission documentation. 23yo male with known cyclic vomiting syndrome but in absence of any migraine history (personally or in his family) presenting with nearly 10 days of persistent vomiting and inability to eat/drink. Pt reports symptoms are consistent with his past episodes of cyclic vomiting syndrome and asks for IV zofran. Denies any recent THC use. PMH, PSH, allergies, meds, sochx, famhx, ros - reviewed VSS, afebrile gen - looks ill mouth - mm dry heart - RRR s1 s2 no murmur lungs - CTA b/l abd - soft NT ND BS+, No HSM ext - no edema labs reviewed; lipase minimally elevated recent abd x-rays wnl Cr mildly elevated low K A/P: Probable cyclic vomiting syndrome "exacerbation." Mild acute kidney injury. IV fluids, IV anti-emetics, replete low K. check mag. serial labs. consider prophylaxis for his cyclic vomiting syndrome when this flare is resolved (elavil, etc). consider urine drug screen to r/o THC use. lipase elevation - doubt acute pancreatitis - lipase level can be mildly elevated in setting of dehydration. Miguel Angel Barrios MD PG Care Time/CCT Total # of Minutes Spent Total Time Spent with Patient: Total time spent is greater than 50% in coordination of care (as documented) at patient's floor/unit and/or counseling patient:45 min (1) Cyclical vomiting Nausea presence: with nausea Vomiting Intractability: intractable Qualified Code(s): G43.A1 - Cyclical vomiting, intractable
--- NOTE | 2018-11-28 16:56 | Emergency Department Note ---
Entered by Rohini Dickey acting as a scribe for History of Present Illness General Chief complaint: Vomiting Stated complaint: VOMITING x9 DAYS Source: patient Mode of arrival: ambulatory Limitations: no limitations History of Present Illness Onset (ago): day(s) 9 Location: abdomen Radiation: non-radiation Pain Consistency: + constant Maximum Pain Intensity: 10 Current Pain Intensity: 10 Relieved By: + other (Hot showers) Exacerbated By: + other (Smoking marijuana) Associated symptoms: + other (+abdominal pain, -urinary symptoms) Treatments prior to arrival: none The patient is a 23 year old male w/ PMHx cyclic vomiting syndrome and NAWAF who presents to the ED w/ CC of vomiting beginning 9 days [employer]. He was not doing anything when the vomiting started. He states he has been vomiting "30 to 50" times a day. He also experiences abdominal pain with the nausea and vomiting. He admits to regular marijuana use at night and states he has followed up with GI in the past. He notes the vomiting usually lasts for 1 day, and it has never lasted this long. Hot showers help to relieve his discomfort. He still has both his gallbladder and appendix. He denies any urinary symptoms. He denies any recent sick contacts. Home Medications Home Medications Medication Instructions Recorded Confirmed Type hyoscyamine sulfate 0.125 mg PO QID PRN 10/17/18 11/28/18 History ranitidine HCl 150 mg PO QAM PRN 10/17/18 11/28/18 History calcium carbonate [Tums] 400 mg PO BID PRN 11/26/18 11/28/18 History ondansetron 4 mg PO Q8H PRN #30 tab 11/26/18 11/28/18 Rx Allergies Allergy/AdvReac Type Severity Reaction Status Date / Time aspirin Allergy Severe lips Verified 11/28/18 12:27 swelling Past Med/Surg History Medical History Acute kidney injury Cyclic vomiting syndrome (Acute) Hypokalemia Surgical History S/P T&A (status post tonsillectomy and adenoidectomy) No pertinent past surgical history Family History Brother Diabetes Other No pertinent family history Social History Preferred Language: Cuban Communication Ability: Effective Visual Impairment: No Limitations Hearing Ability: Normal marital status: Single Current Living Situation: Significant Other current occupational status: employed Feels Safe at Home: Yes Smoking Status: Never smoker Hx Substance Use: Yes substance use type: marijuana Review of Systems See HPI for pertinent positives & negatives. and A total of 10 systems reviewed and were otherwise negative Physical Exam Vital Signs Vital Signs - 24 hr 11/28/18 11:00 11/28/18 12:30 11/28/18 13:30 Temperature 37 C Temperature Source Oral Sepsis Recent Fever Within 48 Hours No Sepsis New/Unexplained Change in Mental Status No Sepsis Action Taken by Nursing No Action Required Pulse Rate 70 Pulse Rate [Right Finger] 88 88 Respiratory Rate 16 20 18 Respiratory Effort / Characteristics Respiratory Depth Respiratory Pattern Blood Pressure 158/114 H Blood Pressure [Left Arm] Blood Pressure Mean 128 Blood Pressure Mean [Left Arm] Blood Pressure Position [Left Arm] Pulse Oximetry 100 98 98 Oxygen Delivery Method Room Air 11/28/18 15:04 Temperature Temperature Source Sepsis Recent Fever Within 48 Hours Sepsis New/Unexplained Change in Mental Status Sepsis Action Taken by Nursing Pulse Rate Pulse Rate [Right Finger] 80 Respiratory Rate 20 Respiratory Effort / Characteristics Non-Labored Spontaneous Respiratory Depth Normal Respiratory Pattern Regular Blood Pressure Blood Pressure [Left Arm] 143/84 H Blood Pressure Mean Blood Pressure Mean [Left Arm] 103 Blood Pressure Position [Left Arm] Lying Pulse Oximetry 98 Oxygen Delivery Method Room Air GENERAL: Patient is sitting up in bed, alert, agitated, talking in full sentences. EYE EXAM: normal conjunctiva OROPHARYNX: no exudate, no erythema, lips, buccal mucosa, and tongue normal and mucous membranes are moist NECK: supple, no nuchal rigidity, no adenopathy, non-tender LUNGS: Clear to auscultation. Normal chest wall mechanics HEART: no murmurs, S1 normal and S2 normal ABDOMEN: abdomen soft, non-tender, normo-active bowel sounds, no masses, no rebound or guarding. BACK: Back is symmetrical on inspection and there is no deformity, no midline tenderness, no CVA tenderness. SKIN: no rashes and no bruising UPPER EXTREMITIES: upper extremities are grossly normal. LOWER EXTREMITIES: No pitting edema. NEURO EXAM: Normal sensorium, cranial nerves II-XII grossly intact, normal speech, no gross weakness of arms, no gross weakness of legs. Gross sensation intact. Course ED COURSE: Vital signs were reviewed and showed the patient is hypertensive. The patients medical record was reviewed The above diagnostic studies were performed and reviewed. ED treatments and interventions as stated above. 1129: The patient was evaluated in room C5. A complete history and physical examination was performed. 1136: The patient declines imaging at today's visit. 1330: I reevaluated the patient. He has vomited once in the past 2 hours. He was sleeping upon my arrival to the room. 1415: I discussed the patients case with Dr. Cruz, [facility] Hospitalist. The patient will be further evaluated. 1420: Upon reevaluation, the patient is resting comfortably. I discussed my findings with the patient and he understands and agrees with the treatment plan. Based on the patients age, coexisting illnesses, exam and lab findings the decision to treat as an inpatient was made. The patient remained stable while under my care. The patient will be evaluated for further management. Administered Medications Discontinued Medications Capsaicin (Zostrix) 1 appln EXT NOW STA Stop: 11/28/18 11:38 Last Admin: 11/28/18 13:02 Dose: Not Given Documented by: [id number] Sodium Chloride (Nss 1000ml) 1,000 mls @ 999 mls/hr IV .Q1H1M RESHMA Stop: 11/28/18 13:30 Last Infusion: 11/28/18 13:06 Dose: 0 mls/hr Documented by: [id number] Admin: 11/28/18 12:40 Dose: 999 mls/hr Documented by: [id number] Infusion: 11/28/18 12:40 Dose: 0 mls/hr Documented by: [id number] Admin: 11/28/18 11:43 Dose: 999 mls/hr Documented by: [id number] Promethazine HCl 12.5 mg/ (Sodium Chloride) 50.5 mls @ 202 mls/hr IV NOW STA Stop: 11/28/18 11:51 Last Infusion: 11/28/18 12:41 Dose: 0 mls/hr Documented by: [id number] Admin: 11/28/18 11:52 Dose: 202 mls/hr Documented by: [id number] Lactated Ringer's (Lr) 1,000 mls @ 999 mls/hr IV .Q1H1M ONE Stop: 11/28/18 14:40 Last Infusion: 11/28/18 15:59 Dose: 0 mls/hr Documented by: [id number] Admin: 11/28/18 14:00 Dose: 999 mls/hr Documented by: [id number] Potassium Chloride (K Mandeep / Wtr) 10 meq in 100 mls @ 100 mls/hr IV ONE ONE Stop: 11/28/18 14:39 Last Infusion: 11/28/18 15:06 Dose: 0 mls/hr Documented by: [id number] Admin: 11/28/18 14:00 Dose: 100 mls/hr Documented by: [id number] Ondansetron HCl (Zofran) 4 mg IV NOW STA Stop: 11/28/18 11:37 Last Admin: 11/28/18 11:53 Dose: 4 mg Documented by: [id number] Potassium Chloride (Klor-Con M20) 40 meq PO NOW STA Stop: 11/28/18 13:41 Last Admin: 11/28/18 14:00 Dose: Not Given Documented by: [id number] Promethazine HCl (Phenergan) Confirm Administered Dose 25 mg .ROUTE .STK-MED ONE Stop: 11/28/18 11:48 Last Admin: 11/28/18 11:53 Dose: Not Given Documented by: [id number] Medical Decision Making Differential Diagnosis Differential diagnoses includes but is not limited to gastritis, peptic ulcer disease, GERD, gallbladder disease, pancreatitis, small bowel obstruction, acute coronary syndrome, pericarditis, ischemic bowel, irritable bowel disease, irritable bowel syndrome, appendicitis, diverticulitis, malignancy, hernia, urinary tract infection, torsion, perforation, trauma, infectious. Medical Records Attestation: I reviewed the patient's medical records. Home Medications Current Medication List: was personally reviewed by me Laboratory Data Attestation: I reviewed the patient's lab results. Result diagrams: 11/28/18 11:40 11/28/18 11:40 Lab Results 11/28/18 11/28/18 11/28/18 Range/Units 11:40 11:40 14:00 WBC 8.55 (4.8-10.8) K/uL RBC 5.09 (4.7-6.1) M/uL Hgb 15.3 (14.0-18.0) g/dL Hct 41.4 L (42-52) % MCV 81.3 (80-100) fL MCH 30.1 (25-34) pg MCHC 37.0 H (32-36) g/dL RDW Std Deviation 35.2 L (36.4-46.3) fL RDW Coeff of Nel 11.9 (11.5-14.5) % Plt Count 283 (130-400) K/uL MPV 9.0 (7.4-10.4) fL Immature Gran % (Auto) 0.4 % Neut % (Auto) 69.9 % Lymph % (Auto) 20.4 % [place] % (Auto) 8.9 % Eos % (Auto) 0.2 % Baso % (Auto) 0.2 % Immature Gran # (Auto) 0.03 H (0.00-0.02) K/uL Neut # (Auto) 5.98 (1.4-6.5) K/uL Lymph # (Auto) 1.74 (1.2-3.4) K/uL [place] # (Auto) 0.76 H (0.11-0.59) K/uL Eos # (Auto) 0.02 (0-0.5) K/uL Baso # (Auto) 0.02 (0-0.2) K/uL Sodium 136 (136-145) mmol/L Potassium 2.8 L (3.5-5.1) mmol/L Chloride 95 L (98-107) mmol/L Carbon Dioxide 33 H (21-32) mmol/L Anion Gap 9.0 (3-11) BUN 11 (7-18) mg/dl Creatinine 1.32 (0.6-1.4) mg/dl Est Cr Clr Drug Dosing 77.2 ml/min Est GFR ( Amer) 86.3 Est GFR (Non-Af Amer) 74.5 BUN/Creatinine Ratio 8.5 L (10-20) Glucose 100 H (70-99) mg/dl Calcium 10.1 (8.5-10.1) mg/dl Total Bilirubin 0.8 D (0.2-1) mg/dl AST 14 L (15-37) U/L ALT 22 (12-78) U/L Alkaline Phosphatase 54 (45-117) U/L Total Protein 8.7 H (6.4-8.2) gm/dl Albumin 4.9 (3.4-5.0) gm/dl Globulin 3.8 (2.5-4.0) gm/dl Albumin/Globulin Ratio 1.3 (0.9-2) Lipase 513 H (73-393) U/L Urine Color Yellow Urine Appearance Cloudy A (Clear) Urine pH >= 9.0 H (4.5-7.5) Ur Specific [place] 1.008 (1.000-1.030) Urine Protein Negative (Negative) Urine Glucose (UA) Negative (Negative) Urine Ketones 1+ H (Negative) Urine Blood Negative (Negative) Urine Nitrite Negative (Negative) Urine Bilirubin Negative (Negative) Urine Urobilinogen Negative (Negative) Ur Leukocyte Esterase Negative (Negative) Urine WBC (Auto) 0 (0-5) /hpf Urine RBC (Auto) 0-4 (0-4) /hpf U Hyaline Cast (Auto) 0 (0-5) /lpf U Epithel Cells (Auto) 0-5 (0-5) /lpf Urine Bacteria (Auto) Negative (Negative) Blood Pressure Blood Pressure Findings: Elevated blood pressure Blood Pressure Disposition: further management by hospitalist MDM Narrative Patient is a 23-year-old male with past medical history of sickle vomiting and marijuana abuse that presents the ER for periumbilical abdominal pain. IV was obtained and labs were obtained as well. Labs show no significant leukocytosis or anemia. BMP with mild hypokalemia at 2.8. Chloride was slightly low as well. LFTs bilirubin was unremarkable. Lipase is slightly elevated at 513 increased from 3 days ago in the 400s. UA was unremarkable. Patient declined any imaging of his abdomen. He was given IV fluids, IV potassium along with IV Zofran and Phenergan. Vomiting ceased while in the ER. Recommended imaging of the abdomen for which she declined. Patient was very agitated. As the vomiting abated he notes he does not feel like he wants to eat. Is concerned that this could be pancreatitis although I favor cyclical vomiting syndrome. Based on this patient was discussed with the hospitalist for observation. Impression & Plan Cyclical vomiting, Abdominal pain Discharge Plan Visit Data Chief Complaint: Vomiting Stated Complaint: VOMITING x9 DAYS ED Provider: Ulises Foster Discharge Problem: Cyclical vomiting, Abdominal pain Patient Disposition: Being Evaluated by Hospitalist Forms Stand Alone Forms: My [facility] Prescriptions Prescriptions: No Action hyoscyamine sulfate 0.125 mg Tablet 0.125 mg PO QID PRN (Reason: ibs) RF: 0 ranitidine HCl 150 mg Tablet 150 mg PO QAM PRN (Reason: Gastric Reflux) RF: 0 calcium carbonate [Tums] 200 mg calcium (500 mg) Tablet,Chewable 400 mg PO BID PRN (Reason: Gi Upset) RF: 0 ondansetron 4 mg tablet,disintegrating 4 mg PO Q8H PRN (Reason: nausea and vomiting) Qty: 30 RF: 0 Referrals Referrals: PCP,NO [Primary Care Provider] - Discharge Problem: Cyclical vomiting Qualifiers: Vomiting Intractability: intractable Nausea presence: with nausea Qualified Code(s): G43.A1 - Cyclical vomiting, intractable The scribe's documentation has been prepared under my direction and personally reviewed by me in its entirety. I confirm that the note above accurately reflects all work, treatment, procedures, and medical decision making performed by me.
[2018-11-28] MEDS ORDERED: PROMETHAZINE HCL 12.5 MG in SODIUM CHLORIDE 0.9% 50 ML IV PRN (18:18)
[2018-11-28] MEDS: ONDANSETRON INJ 2 MG/ML 2 ML VIAL IV SCH (19:07)
[2018-11-28] MEDS: NSS + 20MEQ KCL 20 MEQ/1,000 ML BAG IV SCH (19:09)
[2018-11-29] MEDS: ONDANSETRON INJ 2 MG/ML 2 ML VIAL IV SCH ×3 (00:58→12:18)
[2018-11-29] MEDS: NSS + 20MEQ KCL 20 MEQ/1,000 ML BAG IV SCH ×2 (03:00→10:45)
[2018-11-29 07:54] LABS: BUN Creatinine Ratio 4.7 (10-20); Calcium 7.9 mg/dl (8.5-10.1); Est GFR (African American) 105.3; Est GFR (Non-African American) 90.8; Potassium 3.4 mmol/L (3.5-5.1)
[2018-11-29 10:42] LABS: Amphetamines+Metham, Urine Neg (Neg); Barbiturates, Urine Neg (Neg); Benzodiazepine, Urine Neg (Neg); Cocaine, Urine Neg (Neg); MDMA (Ecstacy), Urine Neg (Neg); Methadone, Urine Neg (Neg); Opiate, Urine Neg (Neg); Phencyclidine, Urine Neg (Neg)
--- NOTE | 2018-11-29 10:57 | Discharge Summary ---
Date of Service November 29, 2018 Admission HPI Per Admitting Provider This is a 23-year-old male with a history of cyclical vomiting syndrome who presents to the emergency department for evaluation with 9 days of non-stop vomiting. Patient is stating the only thing that helps him get through this is IV fluids and IV Zofran. Patient was seen in the ER yesterday with a prescription for Zofran ODT which he refused to take. Patient was last seen for same complaints in October 2018. Prior to that patient states he had been doing well for several years. Patient states he was diagnosed with cyclical vomiting syndrome 7 years ago. He states he has been to [facility]. He reports he has had numerous scopes, MRIs and CAT scans which have all been inconclusive or normal. Patient states that he takes hyoscyamine, Zofran and Zantac as needed. He states in the past he has been on numerous PPIs with no success. Patient denies any recent recreational marijuana use and denies any alcohol use. States that the last time he vomited was on arrival to the ER. Patient is currently resting quietly in bed with the lights off receiving IV fluids and IV with girlfriend at his bedside. Denies history of migraines or headaches in general. Principal Diagnosis exacerbation of cyclic vomiting syndrome vs cannabinoid hyperemesis syndrome Discharge Exam Constitutional well developed, well nourished, + well hydrated and average body habitus; no acute distress and no altered mental status ENMT external ear and nose normal, oropharynx normal Respiratory normal respiratory effort, lungs clear to auscultation Cardiovascular RRR, no murmur, no edema Heart Sounds: normal S1 and normal S2 Vessels: posterior tibial pulses present and dorsalis pedis pulses present Gastrointestinal (Abdomen) normal bowel sounds, soft, nontender, no hepatosplenomegaly Psychiatric A+Ox3, euthymic affect Discharge Data Allergies Allergy/AdvReac Type Severity Reaction Status Date / Time aspirin Allergy Severe lips Verified 11/28/18 12:27 swelling Hospital Course (1) Cyclical vomiting: The patient's GI symptoms promptly resolved following admission with use of IV antiemetics and IV fluids. On AM of hospital day #2 he was offered clear liquid diet and tolerated such. He requested discharge to attend to his job shortly after. Labs on AM of hospital day #2 were much improved. The patient's presenting symptoms were either due to an episode of cyclic vomiting syndrome or cannabinoid hyperemesis syndrome as the patient's tox screen was positive for THC. We discussed following up with GI either locally or in [place] to discuss preventive measures for cyclic vomiting syndrome including consideration of a TCA, etc. THC use was discouraged as well. (2) Acute hypokalemia: Repleted IV/PO. Discharge K was 3.4. He was given PO supplementation on day of discharge. (3) Acute kidney injury: Cr on day of admission was 1.3, improving to 1.1 on AM of discharge. (4) Elevated lipase: Mild. (~500) He never had abdominal pain. Lipase normalized to about 100 by AM of hospital day #2. Suspect the mildly elevated lipase was due to dehydration and not acute pancreatitis. (5) Marijuana use: Tox screen was positive for THC use. This may have contributed to his presentation. See discussion above. THC use was discouraged. Total Time Total Time Spent Total Time Spent (In Minutes): 30 Total Time Includes: Examination of the Patient, Discharge Planning and Medication Reconciliation Discharge Plan Discharge Items Patient Disposition: Home - Self-Care Reason For Visit: CYCLICAL VOMITING Discharge Diagnosis: Exacerbation of cyclical vomiting - resolved with IV fluids and IV zofran. Discharge Goals: Diagnostic testing, Improve disease control and Therapeutic intervention Activity: Resume your previous activity Non-emergency contact: Primary Care Provider Call non-emergency contact if: you have any medication questions, your symptoms worsen and your temperature is above 100.5 Follow-up/Referrals: Galdino Escalona III, CRNP [Nurse Practitioner] - 12/05/18 9:00 am (A new pt. appointment has been scheduled for you on 12/05 at 9:00am with JARVIS Mercado.) PCP,NO [Primary Care Provider] - Diet: Clear liquid Addtl Provider Instructions: You had a severe episode of your cyclic vomiting syndrome. It improved/resolved with IV fluids and IV zofran. Your labs have all improved with fluids and time. Please re-establish care with a GI doctor in [place] to discuss ways to prevent future episodes. Typical medications used for prevention purposes include amitryptiline, nortryptiline, etc. Continue your usual medications including zofran ODT for nausea/vomiting. It is vital to start these medications as SOON your symptoms come on. For the next 1-2 days please GRADUALLY increase your diet as tolerated. Start with jello, juices, cymraes ice, etc and go from there. Focus on good hydration. Gradually introduce bland foods into your diet. Avoid alcohol, caffeinated beverages, and spicy/fried foods for at least 1 week. Please refrain from use of marijuana as this can contribute to your nausea/vomiting symptoms. Follow-up - recommend seeing a GI specialist in [place]. Please also establish care with a new primary care physician/provider. Return to [facility] if - * you have recurrent nausea/vomiting that will not stop with your zofran * you have abdominal pains * you have fever over 100.5 degrees * any other concerns Prescriptions: Continued hyoscyamine sulfate 0.125 mg Tablet 0.125 mg PO QID PRN (Reason: ibs) RF: 0 ranitidine HCl 150 mg Tablet 150 mg PO QAM PRN (Reason: Gastric Reflux) RF: 0 calcium carbonate [Tums] 200 mg calcium (500 mg) Tablet,Chewable 400 mg PO BID PRN (Reason: Gi Upset) RF: 0 ondansetron 4 mg tablet,disintegrating 4 mg PO Q8H PRN (Reason: nausea and vomiting) Qty: 30 RF: 0 Stand-Alone Forms: [facility] Discharge Orders: Discharge Order (Routine); Ordered 11/29/18 Ordered By: Miguel Angel Barrios Admission Data Admit Date/Time: 11/28/18 15:18 Attending Provider: Miguel Angel Barrios Admit Provider: Miguel Angel Barrios Primary Care Provider: PCP,NO Other Providers: Urbano Johnson ; Erasmo Cruz Service: Telemetry Medical Other Interventions: Discharge Summary Assessment (RN) Last Done: 11/29/18 11:51 Pending Studies at Discharge: No DC Date/Time DO NOT enter until pt leaves facility: 11/29/18 12:06
[2018-11-29] MEDS ORDERED: POTASSIUM CHLORIDE 10 MEQ TABCR PO ONE (11:15)
== END 2018-11-29 12:06 | disposition home or self-care (01) ==
LOC: ED 10:54 → 2W 15:18 → INTOOBSV 15:18 → 2W 17:50